=== PATIENT | male | born 1980 | race Caucasian/White ===

== ENCOUNTER → 2024-11-09 | Day surgery (SDC) | payer MEDICAID, SELFPAY ==
[2024-11-06 13:55] VITALS: BMI 32.1
[2024-11-09] VITALS (12 sets, daily range): BP systolic 117–135; BP diastolic 72–100; PULSE 79–93; RESP 15–20; TEMP 36.4–37.1; O2SAT 93–96; BMI 33.5
[2024-11-09] MEDS: SODIUM CHLORIDE 0.9% 500 ML 500 ML 20 ML IV (10:02)
[2024-11-09] MEDS: MEPERIDINE INJ 25 MG/ML VIAL (ASD USE ONLY) 50 MG IV (10:03)
[2024-11-09] MEDS: MIDAZOLAM INJ 1 MG/ML VIAL 2 ML (ASD USE ONLY) 2 MG IV (10:03)
[2024-11-09] MEDS: fentaNYL CIT INJ 50 mCg/ML AMP 2ML (ASD USE ONLY) IV (10:03)
[2024-11-09] MEDS: DiphenhydrAMINE INJ 50 MG/ML VIAL 25 MG IV (10:04)
--- NOTE | 2024-11-09 10:15 | SUR.PHASEII ---
Pt arrived to PACU, report received from MAGDALENA Ramirez. Pt able to responds to verbal instructions and drifted back to sleep. [facility] staff brought back to sit with the patient. No acute distress noted.
--- NOTE | 2024-11-09 10:32 | SUR.PHASEII ---
Pt more awake and tolerating oral fluid intake.
--- NOTE | 2024-11-09 10:50 | SUR.PHASEII ---
PT ABLE TO AMBULATE TO THE BATHROOM INDEPENDENTLY. [facility] STAFF AND OFFICERS PRESENT IN PACU ARE WHILE PT IN THE BATHROOM GETTING DRESSED.
== END | disposition home or self-care (01) ==
PROVIDERS: PCP Internal Medicine; Referring Provider Specialist; Visit Provider Specialist
PROC: 0DBE8ZX Excision of Large Intestine, Via Natural or Artificial Opening Endoscopic, Diagnostic (ICD-10-PCS; CPT 45380; principal; 2024-11-09 10:15)
DX: K64.3 Fourth degree hemorrhoids (principal); K57.31 Diverticulosis of large intestine without perforation or abscess with bleeding
CPT/HCPCS: 46221; 45378; A4649; J1200; J2175; J2250; J3010; J7040

== ENCOUNTER 2025-08-17 08:40 | Day surgery (SDC) | payer MEDICAID, SELFPAY ==
--- NOTE | 2025-08-16 11:35 | ESHP_ITS ---
RE: KARENA SMITH : 1980 DATE OF ADMISSION: 08/16/2025 Patient is from [facility]. He is a 45-year-old gentleman with a history of prostatism. He is taking 0.8 mg of tamsulosin. And patient is now scheduled to have cystoscopy for his prostatic obstruction. Patient is 45-year-old with a slowing urinary stream and nocturia. PHYSICAL EXAMINATION: Clinically examination reveals: HEENT: Normal. NECK: Supple. LUNGS: Clear. HEART: Sounds are normal. ABDOMEN: Soft without any organomegaly. No guarding. No rigidity. EXTREMITIES: Normal. PLAN: Cystoscopy. I will ask for PSA. Thank you very much for your kind referral. cc: [facility] DT: 11:00:10 TT: 11:34:00 Ref: [id number] - TID: [id number]
[2025-08-16 11:36] VITALS: BMI 32.5
[2025-08-17 06:00] VITALS: BP 114/80; PULSE 92; RESP 16; TEMP 36.8; O2SAT 96; BMI 30.7
[2025-08-17 11:23] VITALS: BP 128/85; PULSE 92; RESP 18; TEMP 36.6; O2SAT 95
[2025-08-17 11:28] VITALS: BP 112/87; PULSE 89; RESP 17; O2SAT 95
[2025-08-17 11:33] VITALS: BP 111/87; PULSE 97; RESP 20; O2SAT 96
[2025-08-17 11:45] VITALS: BP 109/77; PULSE 85; RESP 14; O2SAT 98
--- NOTE | 2025-08-17 11:56 | SUR.PHASEII ---
1123: Pt received in Pacu via marlen. Report from Tasia NICHOLS and Dr Chavez. Pt obtunded. Resp even, unlabored. Occasional productive cough. VS stable. No c/o pain. 1150: Pt more
--- NOTE | 2025-08-17 11:59 | SUR.PHASEII ---
1150: Pt more awake, alert. Resp even, unlabored. VS stable. Denies pain. Sitting up tolerating po fluids with no difficulty swallowing and no n/v.
--- NOTE | 2025-08-17 12:41 | SUR.PHASEII ---
1218: Pt fully awake, oriented x3. VS stable. Denies pain. Pt dressed and assisted to restroom. Ambulation steady. Pt and care provider stated understanding of discharge instruction. Pt discharged from [facility];
--- NOTE | 2025-08-17 12:43 | SUR.PHASEII ---
128:Cont) Pt discharged from Pacu in stable condition.
--- NOTE | 2025-08-17 17:52 | ESOP_ITS ---
RE: KARENA SMITH : 1980 DATE OF OPERATION: 08/17/2025 The patient is from [facility]. PREOPERATIVE DIAGNOSES: 1. Prostatism. 2. Prostatic obstruction. POSTOPERATIVE DIAGNOSES: 1. Prostatism. 2. Prostatic obstruction. 3. Urethral stricture in the bulbar urethra, moderate size. 4. Moderately enlarged bilobed prostate. INDICATION: Patient is a 45-year-old gentleman from [facility] with nocturia and slowing urinary stream. Rectal examination revealed a moderate size prostate without any hard nodules. Patient's PSA has been at 0.59, repeat PSA is 0.71. Patient has been on tamsulosin 0.8 mg once a day. He is now scheduled to have cystoscopy to evaluate the lower urinary tract. Planned procedure, risks, and complications have been discussed with the patient. Patient understood them and agreed to proceed. DESCRIPTION OF PROCEDURE: After the patient was brought to the operating table, under adequate monitored anesthesia given by Dr. Young, parts were prepped and draped in the usual fashion. Local anesthesia was achieved by injecting Xylocaine jelly intraurethrally into the bladder. Cystoscopy was then done. The meatus is open. The urethra is open till the bulbar urethra where there is a mild stricture, through which the scope could be advanced and the stricture was dilated. Prostatic urethra was then visualized which is showing moderate enlargement of the prostate with a bilobed prostate. Scope was introduced into the bladder. Residual urine is 3 ounces, yellow and clear, and was sent for culture and sensitivity examination. There are no intravesical stones or tumors. Ureteral orifices are normal. Bladder mucosa is also normal. Scope was withdrawn. Patient tolerated the entire procedure well and left the room in good condition. IMPRESSION: 1. Mild bulbar urethral stricture. 2. Mildly enlarged bilobed prostate. Thank you very much for your kind referral. cc: [facility] DT: 11:31:58 TT: 17:51:00 Ref: [id number] - TID: [id number]
== END 2025-08-17 12:18 | disposition home or self-care (01) ==
PROVIDERS: Referring Provider Surgery; Visit Provider Surgery
PROC: 0TJB8ZZ Inspection of Bladder, Via Natural or Artificial Opening Endoscopic (ICD-10-PCS; CPT 52000; principal; 2025-08-17 10:45)
DX: N40.1 Benign prostatic hyperplasia with lower urinary tract symptoms (principal); N13.8 Other obstructive and reflux uropathy; R35.1 Nocturia; R39.198 Other difficulties with micturition; N35.912 Unspecified bulbous urethral stricture, male
CPT/HCPCS: 52000; 87086; A4217; A4649; J2250; J2704